=== PATIENT | male | born 1970 | race Caucasian/White ===

== ENCOUNTER → 2017-03-01 | Outpatient (CLI) | payer BC ==
--- NOTE | 2017-03-01 10:27 | DIAGNOSTIC IMAGING REPORT ---
RIGHT PELVIS UNILATERAL HIP 1 VIEW CLINICAL HISTORY: RIGHT HIP PAIN Right pain COMPARISON: None. DISCUSSION: The bones and joint spaces appear intact. There is no evidence of fracture, dislocation or bony disease. There is no evidence for soft tissue swelling. IMPRESSION: Negative study. Electronically signed by: Mj Vazquez M.D. 03/01/2017 10:26 AM Dictated Date/Time: 03/01/2017 10:25 AM
== END | disposition home or self-care (01) ==
LOC: C.RDSM 14:08
PROVIDERS: ATTEND Physician Assistant
DX: M25.551 Pain in right hip (principal)

== ENCOUNTER → 2017-03-08 | Outpatient (CLI) | payer BC ==
--- NOTE | 2017-03-08 10:43 | DIAGNOSTIC IMAGING REPORT ---
LUMBAR SPINE 5 VIEWS HISTORY: Pain LOW BACK PAIN COMPARISON: None. FINDINGS: There is no fracture. No subluxation. Mild rotational scoliosis. Moderate degenerative disc change throughout the entire lumbar region. Moderate reactive osteophytic change throughout the entire lumbar region. No compression deformity. IMPRESSION: Moderate degenerative change. Mild scoliosis. Electronically signed by: Mj Vazquez M.D. 03/08/2017 10:42 AM Dictated Date/Time: 03/08/2017 10:42 AM
== END | disposition home or self-care (01) ==
LOC: C.RDSM 11:57
PROVIDERS: ATTEND Physician Assistant
DX: M25.551 Pain in right hip (principal); M54.5 Low back pain; M41.9 Scoliosis, unspecified; M51.36 Other intervertebral disc degeneration, lumbar region

== ENCOUNTER → 2017-11-23 | Outpatient (CLI) | payer OTHER ==
--- NOTE | 2017-11-23 15:45 | DIAGNOSTIC IMAGING REPORT ---
DOPPLER ULTRASOUND OF THE RENAL ARTERIES CLINICAL HISTORY: Renal insufficiency. Hypercholesterolemia. COMPARISON STUDY: No priors. TECHNIQUE: Doppler sonography of the renal arteries was performed to assess renal artery stenosis. Images are reviewed in the transverse and longitudinal planes. The examination is degraded by large body habitus and bowel gas. FINDINGS: The kidneys demonstrate mild cortical atrophy and are normal in echotexture. The right kidney measures 10.4 cm in length and the left kidney measures 12.0 cm in length. There is no hydronephrosis. On the right, intrarenal arterial resistive indices range from 0.50 to 0.63. Intrarenal arterial waveforms are normal with brisk upstrokes. The right renal arterial waveform is normal, and velocities within the right renal artery measure up to 102 cm/sec. The right renal vein is patent. On the left, intrarenal arterial resistive indices range from 0.52 to 0.57. Intrarenal arterial waveforms are normal with brisk upstrokes. The left renal arterial waveform is normal, and velocities within the left renal artery measure up to 57 cm/sec. The left renal vein is patent. The abdominal aorta is patent. Velocities within the abdominal aorta measure up to 81 cm/s. Survey images of the liver show evidence of hepatomegaly and hepatic steatosis. The bladder wall appears mildly thickened and trabeculated suggesting chronic outlet obstruction. Both ureteral jets were seen. IMPRESSION: There is no sonographic evidence of renal artery stenosis. Electronically signed by: Luigi Dueñas M.D. 11/23/2017 3:43 PM Dictated Date/Time: 11/23/2017 3:41 PM
== END | disposition home or self-care (01) ==
LOC: C.ULTR 10:08
PROVIDERS: ATTEND Family Medicine
DX: E78.00 Pure hypercholesterolemia, unspecified (principal); N18.1 Chronic kidney disease, stage 1